=== PATIENT | female | born 1990 | race Hispanic/Latino ===

== ENCOUNTER 2016-09-09 09:05 | Inpatient (IN) | payer OTHER ==
[~2016-09-09] VITALS: Ht 157.5 cm; Wt 79.4 kg
[2016-09-09] MEDS ORDERED: Lactated Ringer's 1,000 ML IV PRN (10:41)
[2016-09-09] MEDS ORDERED: Hemorrhage Kit, Post Partum XX ONE ×2 (10:45→19:15)
[2016-09-09] MEDS ORDERED: Sodium Chloride LOK Flush 10 mL Syringe IVFLUSH PRN (10:45)
[2016-09-09] MEDS ORDERED: Carboprost 250 mCg/mL Inj IM PRN ×2 (10:45→19:15)
[2016-09-09] MEDS ORDERED: Ondansetron 2 mg/mL 2 mL Inj IVPUSH PRN ×2 (10:45→17:00)
[2016-09-09] MEDS ORDERED: Oxytocin 10 Unit/mL Inj IM PRN ×2 (10:45→19:15)
[2016-09-09] MEDS ORDERED: Methylergonovine 0.2 mg/mL Inj IM PRN ×2 (10:45→19:15)
[2016-09-09] MEDS ORDERED: Oxytocin 30 Units/500 mL LR 30 UNITS in IV Premix 1 EACH IV PRN ×3 (10:45→19:15)
[2016-09-09] MEDS ORDERED: fentaNYL-PF 50 mCg/mL 2 mL Inj IVPUSH PRN (10:45)
[2016-09-09 11:03] LABS: Mean Corpuscular Hemoglobin 34.2 pg (27.0-35.0); Mean Corpuscular Volume 98.1 fL (81-100)
[2016-09-09] MEDS ORDERED: Lactated Ringer's 1,000 ML IV SCH ×3 (11:16→19:14)
--- NOTE | 2016-09-09 11:23 | PCM.HPOB ---
Subjective Date of Service: Sep 09, 2016 Referring Provider: Admitting Physician: Remedios Diaz MD Primary Care Physician: Mallorie Carter Attending Physician: Remedios Diaz MD Chief Complaint early labor History of Present History of Present Illness 26 female presented to [facility] feeling some contractions found to be at 1.5cm 50% effaced -2 station. She lives 4 min away and was going to be discharged to home when she had a spontaneous rupture of her membranes. Pt NATALIO by LMP 2016, NATALIO by 9 week US 09/25/2016. Pt was a GBS carrier in previous , GBS negative this . Pt positive for cystic fibrosis. OB History: (2), Para (1) Past Medical History Obstetrical History: 1 in 2008, no complications Medical History: GERD, induced Surgical History: pt reports None Hx Tobacco Use: No Hx Alcohol Use: No Hx Substance Use: No Past Family History Living Arrangement: with Family Review of Systems Constitutional: Y: Chills, Fever Eyes: Denies: Vision Changes Cardiovascular: Denies: Chest Pain Respiratory: Denies: Cough Gastrointestinal: Denies: Abdominal Pain, Nausea, Vomiting Genitourinary: Denies: Dysuria Medications Home medications Ranitidine 150mg BID Allergy Coded Allergies: No Known Allergies (Verified Allergy, Severe, 07/09/08) Exam Vital Signs BP 125/72, HR 85, RR 16, temp 35.8 Exam FHR baseline 145, moderate variability. 15x15 accelerations, no decelerations. Constitutional: Well-developed, Well-nourished HEENT: Atraumatic, EOMI Lungs: Clear to Auscultation, Normal Air Movement Heart: Exam Unremarkable, Regular Rate/Rhythm, No Murmurs/Rubs/Gallops Abdomen: Gravid Extremities: Edema (trace) Neurological/Psychiatric: Alert, Oriented X3, Cooperative, No Acute Distress Labs/Diagnostics Maternal Blood Type: O (positive) Hx Rho(D) Immune Globulin: No Antibody Screen: negative Group B Strep Results: Negative Additional Information PAP negative, Varicella unk, Rubella negative, RPR non reactive, HBsAg negative , HIV negative. Chlamydia/ Gonorrhea negative. Cystic fibrosis positive, father tested negative. OB Intrapartum Assessment/Plan Assessment 26 female presents to [facility] in active labor with spontaneous rupture of membranes. Problems: (1) Premature rupture of membranes Plan: Continue supportive care. Continue to monitor. Monitor labor progression , administer Cytotec. Status: Acute ICD Code: O42.90 Pain Evaluation: Adequate Pain Control Attending Statement , full term, PROM. Category 1 tracing. Irregular CTX. Consider induction. No nursing staff available at this time. Will consider induction when nursing staff JAMES Tinsley DO Sep 09, 2016 10:55 Remedios Diaz MD Sep 09, 2016 17:16
[2016-09-09] MEDS ORDERED: Misoprostol 25 mCg/0.25 Tablet VAGINAL SCH (11:25)
[2016-09-09] MEDS ORDERED: Lactated Ringer's 500 ML IV ONE (16:57)
--- NOTE | 2016-09-09 16:57 | PCM.HPANE ---
Patient Data Surgeon Admitting Provider:Remedios Diaz MD Attending Provider:Remedios Diaz MD Primary Care Physician:Mallorie Carter Other Provider: Reason for Visit Early Labor EARLY LABOR Ht/WT & BMI Body Mass Index Allergies Coded Allergies: No Known Allergies (Verified Allergy, Severe, 07/09/08) Medications Active Scripts Docusate Sodium (Colace)100 Mg [id number] Mg PO DAILY PRN For Constipation #60 CAPSULE Prov:CORTEZ CASTELLANO DO 09/10/16 Ibuprofen 600 Mg [id number] Mg PO Q6H PRN For Mild Pain #60 TABLET Prov:CORTEZ CASTELLANO DO 09/10/16 History Hx Alcohol Use: NoHx Substance Use: No Smoking Status: Never Smoker Stop/Bang Risk Assessment Category Category 1A: Patient has history of documented sleep apnea, and HAS NOT received any narcotic, sedative or anesthesia administration during this stay. Category 1B: Patient has history of documented sleep apnea, and HAS received any narcotic , sedative or anesthesia administration during this stay Category 2: Patient has SUSPECTED Obstructive Sleep Apnea, and HAS received any narcotic , sedative or anesthesia administration during this stay. Category 3: Patient has SUSPECTED Obstructive Sleep Apnea and HAS NOT received narcotic, sedative or anesthesia administration during this stay. Category 4: Outpatient in Procedural Areas with known sleep apnea or who screen positive for High Risk via the STOP/BANG questionnaire. Exam Exam General Appearance: Alert, Oriented X3, Cooperative, No Acute Distress HEENT/AIRWAY: MP 1 Lungs: Normal Air Movement Heart: Regular Rate/Rhythm Meds/Labs/Diagnostics Admission Meds Current Medications Lactated Ringer's (Lr) 1,000 ml @ 125 mls/hr Q8H IV Last administered on t 15:59; Start 09/09/16 at 11:16 Labs Test 09/09/16 10:57 White Blood Count 6.8th/mm3 (3.8-10.1) Red Blood Count 3.66mil/mm3 (3.90-5.20) Hemoglobin 12.5g/dL (12.0-15.6) Hematocrit 35.9% (35.0-46.0) Mean Corpuscular Volume 98.1fL (81-100) Mean Corpuscular Hemoglobin 34.2pg (27.0-35.0) Mean Corpuscular Hemoglobin Concent 34.8% (32.0-37.0) Red Cell Distribution Width 14.0% (12.3-15.4) Platelet Count 259bil/L (150-400) Plan Impression Patient chart reviewed, patient interviewed and anesthestic plan with risks, benefits, and alternatives discussed, and informed consent obtained. ASA Physical Status: ASA1 Normal Healthy Anesthetic Plan: Epidural Bene/Risks/Altern/Consents: Yes HP Complete Prior to Induction: Yes Tamanna Crews DO Sep 09, 2016 16:57
[2016-09-09] MEDS ORDERED: fentaNYL 2 mCg/mL-Bupiv 0.125% 100 ML EPIDURAL SCH (17:00)
[2016-09-09] MEDS ORDERED: EPHEDrine Sulfate 50 mg/mL Inj IVPUSH PRN (17:00)
[2016-09-09] MEDS ORDERED: Atropine 1 mg/10 mL (Code) Syringe IVPUSH PRN (17:00)
[2016-09-09] MEDS ORDERED: Benzocaine (Dermoplast) 20% 60 Gm Spray TOPICAL PRN (19:15)
[2016-09-09] MEDS ORDERED: LANOlin HPA 7 Gm Ointment TOPICAL PRN (19:15)
[2016-09-09] MEDS ORDERED: Witch Hazel-Glycerin Pads TOPICAL PRN (19:15)
--- NOTE | 2016-09-10 05:11 | OP ---
[address] [address] OPERATIVE REPORT PATIENT: CLAUS SALCEDO : 1990 MR#: [id number] ADMIT: 09/09/2016 JOB ID: [id number] DATE OF SURGERY: 09/09/2016 SURGEON: Remedios Diaz MD. PREOPERATIVE DIAGNOSIS(ES): POSTOPERATIVE DIAGNOSIS(ES): DELIVERY NOTE: This is a 26-year-old female, 2, para 2 now. She presented to [facility] for contractions. She is currently 38 weeks . At triage, she was noted she had irregular contractions but at the same time it was noted she had positive leaking fluid from her vagina and noted she has rupture of membranes. It was clear fluid, and she had irregular contractions. heart tracing category 1. At that time, her cervix was about 2 cm dilated, 50% effaced, -2. We admitted her. At first we had no nursing staff available. When there was nursing staff available, she was re-examined. She was about 4 cm dilated, 50% effaced and at -2 station. At that time Pitocin started for induction and she had regular contractions, and the patient desired epidural for pain management. She got an epidural. Pain was well controlled. During the process her heart tracing was reassuring, and she progressed to full dilation. She started to have the urge to push. She had good effort to push. There was steady descent of the head. The infant delivered in an BITA position, and the shoulders and chest delivered without difficulty. The was placed on mother's chest after delivery. The cord clamped and cut. Cord blood collected. Placenta delivered spontaneously completely, and examined as three-vessel cord. The uterus well contracted after delivery. There was no laceration noted in her vagina. The EBL during delivery was 150 cc. All instruments, needles, laps and gauzes counted correct twice.
[2016-09-10 07:22] LABS: Mean Corpuscular Hemoglobin 31.8 pg (27.0-35.0); Mean Corpuscular Volume 95.1 fL (81-100)
--- NOTE | 2016-09-10 13:27 | PCM.PNOBPP ---
Subjective Date of Service Sep 10, 2016 Post : Spontaneous Vaginal Delivery Subjective 26-year-old G2 now P2 presented [facility] in the morning of 10/2016. She was in early labor with spontaneous rupture of membranes confirmed with the ROM+ positive test at 38 weeks gestation. She was making cervical change, labor was augmented with oxytocin. She delivered via normal spontaneous vaginal delivery on 09/09/2016 at 20:15. Since that time she is doing well, she reports feeling swollen which is helped with ibuprofen, she has a normal amount of lochia she is urinating but not passing gas and has not had a bowel movement. She has some appetite and is walking to the nursery to see and feed her baby who has a pneumothorax but is recovering well. She reports no headache, dizziness, epigastric pain, fever, chills, vision changes. Patient is breast-feeding and has pumped a couple of times she is undecided about control but will likely use the pill. She does report some indigestion for which she takes ranitidine at home. Lochia: Normal Pain Management: PO pain meds Gastrointestinal: Good Appetite, No N/V Postop Activity: Ambulating Independently Group B Strep Results: Negative Rubella: Immune Blood Type: O (positive) RH Type: Positive Labs Laboratory Tests 09/10/16 07:15: White Blood Count 14.3, Red Blood Count 3.46, Hemoglobin 11.0, Hematocrit 32.9, Mean Corpuscular Volume 95.1, Mean Corpuscular Hemoglobin 31.8, Mean Corpuscular Hemoglobin Concent 33.4, Red Cell Distribution Width 13.1, Platelet Count 236 Exam Vital Signs Vital Signs BP 118/70 HR 85 R 16 Temp 36.8 Vital Signs: VS reviewed, stable Exam Abdomen: Fundus firm, Abdomen soft : Voiding without difficulty Extremities: Edema 1+ Lungs: Clear to Auscultation, Normal Air Movement Heart: Regular Rate/Rhythm, No Murmurs/Rubs/Gallops General: Alert, Oriented X3, Cooperative, No Acute Distress OB Post Assessment/Plan Assessment 26-year-old G2 now P2 [facility] the morning of 10/2016. She was in early labor with spontaneous rupture of membranes confirmed with the ROM+ positive test at 38 weeks gestation. She was making cervical change, labor was augmented with oxytocin. She delivered via normal spontaneous vaginal delivery on 09/09/2016 at 20:15. Patient is doing well Problems: (1) Vaginal delivery Plan: Routine post care. Status: Acute ICD Code: O80 (2) Premature rupture of membranes Qualifiers: PROM onset of labor timing: onset of labor within 24 hours of rupture Status: Acute ICD Code: O42.90 (3) Qualifiers: Weeks of gestation: 38 weeks Qualified Code: Z3A.38 - 38 weeks gestation of Status: Resolved ICD Code: Z33.1 Pain Evaluation: Adequate Pain Control Post plan: Continue routine post care Plan: Varicella status unknown Attending Statement The patient was seen and examined together with Dr. Larry on 09/10/2016 and I agree with the history, exam and plan as outlined in the note above. / MD NONA Kohler ERIKA R DO Sep 10, 2016 09:09 Davidson Shearer MD Sep 29, 2016 17:06
[2016-09-10] MEDS ORDERED: IBUP-1827 PO (14:37)
[2016-09-10] MEDS ORDERED: DOCU-41 PO (14:37)
--- NOTE | 2016-09-10 14:45 | PCM.DIOB ---
Obstetrical Disch Instruction Date of Service: Sep 10, 2016 Dates of Hospitalization Date of Hospital Admission Sep 09, 2016 at 10:09 Providers Admitting Physician: Remedios Diaz MD Primary Care Physician: Mallorie Carter Attending Physician: Remedios Diaz MD Discharge Diagnosis Discharge Diagnosis Normal Spontaneous Vaginal Delivery Post Operative diagnosis Normal Spontaneous Vaginal Delivery Problems: (1) Vaginal delivery Plan: Routine post care. Status: Acute ICD Code: O80 (2) Premature rupture of membranes Qualifiers: PROM onset of labor timing: onset of labor within 24 hours of rupture Status: Acute ICD Code: O42.90 (3) Qualifiers: Weeks of gestation: 38 weeks Qualified Code: Z3A.38 - 38 weeks gestation of Status: Resolved ICD Code: Z33.1 Diet Discharge Diet: No restrictions Activity Discharge Activity-General: Pelvic Rest for 6 weeks, Balance rest and activity Dressing and Incisional Care Hygiene: May shower Additional Instructions Discharge Instructions Continue your vitamin. You may have constipation so you have also been given a prescription for docusate to keep you regular. Be sure to follow up in 6 weeks at [facility]. Pelvic rest for 6 weeks (nothing per vagina including intercourse, tampons) If you have a fever greater than 100.4, please call [facility]. There is always someone retail operations manager to talk to. If you have an increase in bleeding, call [facility]. If you have a lot of bleeding suddenly, especially if you have symptoms of dizziness & weakness with it, get emergency help. If you start experiencing extreme depression, especially if you feel that you are a danger to yourself or your family, seek emergency help. You have been through a lot -- BE SURE TO TAKE CARE OF YOURSELF. Follow Up Plan Follow-up Provider (F9): Remedios Diaz MD Follow-up appointment: Weeks (6) Call your provider for: Fever or Chills, Shortness of breath, Heavy vaginal bleeding, Epigastric pain, Excessive constipation, Red painful breasts CORTEZ CASTELLANO DO Sep 10, 2016 14:44
[2016-09-10 15:23] VITALS: BP 109/70; PULSE 73; RESP 16
--- NOTE | 2016-09-10 15:49 | PCM.DC.OB ---
Obstetrical Discharge Summary Date of Service Sep 10, 2016 Date of hospital admission Sep 09, 2016 at 10:09 Date of Discharge: Sep 10, 2016 Providers Admitting Physician: Remedios Diaz MD Primary Care Physician: Mallorie Carter Attending Physician: Remedios Diaz MD Diagnosis at Time of Discharge Normal Spontaneous Vaginal Delivery Problems: (1) Vaginal delivery Plan: Routine care. Status: Acute ICD Code: O80 (2) Premature rupture of membranes Qualifiers: PROM onset of labor timing: onset of labor within 24 hours of rupture Status: Acute ICD Code: O42.90 (3) Qualifiers: Weeks of gestation: 38 weeks Qualified Code: Z3A.38 - 38 weeks gestation of Status: Resolved ICD Code: Z33.1 Invasive procedures Normal Spontaneous Vaginal Delivery Date of Procedure: Sep 09, 2016 Brief History and Physical: HPI on time of admission: 26 female presented to [facility] feeling some contractions found to be at 1.5cm 50% effaced -2 station. She lives 4 [place] away and was going to be discharged to home when she had a spontaneous rupture of her membranes. Pt NATALIO by LMP 2016, NATALIO by 9 week US 09/25/2016. Pt was a GBS carrier in previous , GBS negative this . Pt positive for cystic fibrosis. Exam on day of discharge: vital signs stable and normal, well-nourished well- appearing, heart regular rate and rhythm no murmurs, lungs clear to auscultation bilaterally with good air movement. Abdomen soft, uterine fundus firm. +1 edema in bilateral lower extremities. Appropriate mood and affect. Hospital Course: 26-year-old G2 now P2 presented to the [facility] in the morning of 10/2016. She was in early labor with spontaneous rupture of membranes confirmed with the ROM+ positive test at 38 weeks gestation. She was making cervical change, labor was augmented with oxytocin. She delivered via normal spontaneous vaginal delivery on 09/09/2016 at 20:15. Since that time she has met post goals and is stable. She was discharged to board status. Docusate Sodium (Colace) 100 Mg Capsule 100 MG PO DAILY PRN PRN For Constipation Prescribed by: CORTEZ CASTELLANO DO Ibuprofen (Ibuprofen) 600 Mg Tablet 600 MG PO Q6H PRN PRN For Mild Pain Prescribed by: CORTEZ CASTELLANO DO Disposition Discharge to boarder status Follow-up plan 6 weeks in [facility] Discharge Diet: No restrictions Discharge Activity-General: Pelvic Rest for 6 weeks, Balance rest and activity Patient instructions Continue your vitamin. You may have constipation so you have also been given a prescription for docusate to keep you regular. Be sure to follow up in 6 weeks at [facility]. Pelvic rest for 6 weeks (nothing per vagina including intercourse, tampons) If you have a fever greater than 100.4, please call [facility]. There is always someone ribbon blockmaker to talk to. If you have an increase in bleeding, call [facility]. If you have a lot of bleeding suddenly, especially if you have symptoms of dizziness & weakness with it, get emergency help. If you start experiencing extreme depression, especially if you feel that you are a danger to yourself or your family, seek emergency help. You have been through a lot -- BE SURE TO TAKE CARE OF YOURSELF. Attending Statement: The patient was seen and examined together with Dr. Castellano on 09/10/2016 and I agree with the history, exam and plan as outlined in the note above. / MD NONA Kohler ERIKA R DO Sep 10, 2016 15:49 Davidson Shearer MD Sep 29, 2016 17:08
--- NOTE | 2016-09-11 06:11 | PCM.ANEP1 ---
Post Anesthesia Phase 1 PACU Phase 1 Assessment Date of Service: Sep 09, 2016 Anesthetic Administered: Epidural Level of Alertness: Awake, talking VELASQUEZ's with Equal Strength: Yes Pain: Yes Pain Scale Score: 1 Nausea or Vomiting: No Lungs: Normal Air Movement Alo Gutierres MD Sep 11, 2016 06:11
--- NOTE | 2016-09-11 06:11 | PCM.ANEP2 ---
Post Anesthesia Evaluation ASA/CMS Post Anesthesia VS in Patient's Normal Range?: Yes Resp Stable; Airway Patent?: Yes CV Function & Hydration Stable: Yes Mental Status Recovered?: Yes Pain control Satisfactory?: Yes N/V Control Satisfactory?: Yes Alo Gutierres MD Sep 11, 2016 06:11
== END 2016-09-10 15:40 | disposition home or self-care (01) | DRG 775 ==
LOC: FBCO 09:05 → FBC 10:09
PROVIDERS: ADMIT Obstetrics & Gynecology; ATTEND Obstetrics & Gynecology
PROC: 10E0XZZ Delivery of Products of Conception, External Approach (ICD-10-PCS; principal; 2016-09-09)
DX: O42.02 Full-term premature rupture of membranes, onset of labor within 24 hours of rupture (principal); E84.9 Cystic fibrosis, unspecified; Z3A.38 38 weeks gestation of pregnancy; Z37.0 Single live birth; K21.9 Gastro-esophageal reflux disease without esophagitis